=== PATIENT | male | born 1965 | race Caucasian/White ===

== ENCOUNTER 2017-05-05 18:30 | Emergency (ER) | payer OTHER ==
[~2017-05-05 18:30] MED LIST: ASPI81TA21 PO; B-CO1CAP17 PO; CHOL100027 PO; VITAMIN-C PO
[2017-05-05] MEDS ORDERED: RANITIDINE HCL 150 MG TAB ONE (19:33)
[2017-05-05 23:54] LABS: ALBUMIN 3.8 gm/dl (3.4-5.0); ALKALINE PHOSPHATASE 77 U/L (45-117); ALT/SGPT 28 U/L (12-78); AST/SGOT 17 U/L (15-37); BLOOD UREA NITROGEN 26 mg/dl (7-18); CALCIUM 8.7 mg/dl (8.5-10.1); CARBON DIOXIDE 26 mmol/L (21-32); CREATININE 1.01 mg/dl (0.60-1.40); GLUCOSE 85 mg/dl (70-99); LIPASE 244 U/L (73-393); SODIUM 137 mmol/L (136-145); TOTAL PROTEIN 7.1 gm/dl (6.4-8.2)
[2017-05-05 23:56] LABS: HEMOGLOBIN 15.4 g/dL (14.0-18.0); MEAN CELL VOLUME 85.8 fL (80-100); MEAN PLATELET VOLUME 10.1 fL (7.4-10.4); PLATELET COUNT 180 K/uL (130-400); RED CELL DISTRIBUTION WIDTH CV 13.1 % (11.5-14.5); RED CELL DISTRIBUTION WIDTH SD 41.1 fL (36.4-46.3); WHITE BLOOD COUNT 9.03 K/uL (4.8-10.8)
--- NOTE | 2017-05-05 23:56 | EMERGENCY ROOM VISIT NOTE ---
ED Visit Note First contact with patient: 23:56 Resident Physician Supervision Note: I was present with Dr. Esteban during the history and exam. I discussed the case with the resident and agree with the findings and plan as documented in the note. Documented By: Binh Dee
--- NOTE | 2017-05-06 07:00 | DIAGNOSTIC IMAGING REPORT ---
CHEST ONE VIEW PORTABLE CLINICAL HISTORY: CHEST PAIN dyspnea COMPARISON STUDY: 12/10/2011 FINDINGS: Moderate cardiomegaly. Poor visibility normal structures left base consistent with a regional consolidation. Lungs otherwise appear clear. Prominence of the mid dyspnea mediastinum most likely technical and secondary to the AP technique. IMPRESSION: Mild stable cardiomegaly. Parenchymal infiltrate versus consolidation left base. The above report was generated using voice recognition software. It may contain grammatical, syntax or spelling errors. Electronically signed by: Huseyin Bauman M.D. 05/06/2017 6:58 AM Dictated Date/Time: 05/06/2017 6:57 AM
--- NOTE | 2017-05-06 16:00 | EMERGENCY ROOM VISIT NOTE ---
History First contact with patient: 23:58 Chief Complaint: OTHER COMPLAINT Stated Complaint: REFLUX,DIARRHEA History of Present Illness Please note the EMR was down during the patients time in the ED. Please refer to paper downtime notes for further details. The patient is a 51 year old male who presents to the Emergency Room with complaints of persistent epigastric pain. He reports it had started 4 days prior. He notes he had drank 8 beers in one day on Wednesday, then the next day had severe reflux. His got him TUMS which helped a small amount. He reports the pain is burning, in the center of his chest, does not radiate, 7/10 severity, and nothing makes it better or worse. He came in because he was concerned when TUMS was not helping as much. He also noted a few episodes of non bloody diarrhea. He denied any melena, vomiting, or other change in bowel habit. Review of Systems See HPI for pertinent positives & negatives. A total of 10 systems reviewed and were otherwise negative. Past Medical/Surgical History PMHx: Obesity PSHx: None Family History Parents are both alive and healthy, but have HTN Social History Smoking Status: Never Smoker Alcohol Use: other (12 bottles of beer per week) Marital Status: Occupation Status: employed Current/Historical Medications Scheduled Aspirin Enteric Coated (Ecotrin Or Generic), 81 MG PO TODAY Cholecalciferol (Vitamin D 1000 Unit), 1,000 INTER.UNIT PO DAILY Vitamin B Cmplx/Vitc/Folic Ac (Nephrocaps), 1 CAP PO DAILY [Vitamin-C], 500 MG PO DAILY Allergies NKDA Physical Exam Physical Exam GENERAL: Awake, alert, well-appearing, in no acute distress HENT: Normocephalic, atraumatic. Oropharynx unremarkable. EYES: Normal conjunctiva. Sclera non-icteric. NECK: Supple. No nuchal rigidity. FROM. No JVD. RESPIRATORY: Clear to auscultation. CARDIAC: Regular rate, normal rhythm. Extremities warm and well perfused. Pulses equal. ABDOMEN: Soft, non-distended. No tenderness to palpation. No rebound or guarding. No masses. RECTAL: Deferred. MUSCULOSKELETAL: Chest examination reveals no tenderness. The back is symmetrical on inspection without obvious abnormality. There is no CVA tenderness to palpation. No joint edema. LOWER EXTREMITIES: Calves are equal size bilaterally and non-tender. No edema. No discoloration. NEURO: Normal sensorium. No sensory or motor deficits noted. SKIN: No rash or jaundice noted. Medical Decision & Procedures ER Provider Diagnostic Interpretation: CHEST ONE VIEW PORTABLE CLINICAL HISTORY: CHEST PAIN dyspnea COMPARISON STUDY: 12/10/2011 FINDINGS: Moderate cardiomegaly. Poor visibility normal structures left base consistent with a regional consolidation. Lungs otherwise appear clear. Prominence of the mid dyspnea mediastinum most likely technical and secondary to the AP technique. IMPRESSION: Mild stable cardiomegaly. Parenchymal infiltrate versus consolidation left base. Laboratory Results 05/05/17 19:30 05/05/17 19:30 Test 05/05/17 19:30 Red Blood Count 5.13 M/uL (4.7-6.1) Mean Corpuscular Volume 85.8 fL (80-100) Mean Corpuscular Hemoglobin 30.0 pg (25-34) Mean Corpuscular Hemoglobin Concent 35.0 g/dl (32-36) RDW Standard Deviation 41.1 fL (36.4-46.3) RDW Coefficient of Variation 13.1 % (11.5-14.5) Mean Platelet Volume 10.1 fL (7.4-10.4) Anion Gap 6.0 mmol/L (3-11) Estimated GFR () 100.1 Estimated GFR (Non- 86.3 BUN/Creatinine Ratio 25.3 (10-20) Calcium Level 8.7 mg/dl (8.5-10.1) Total Bilirubin 0.5 mg/dl (0.2-1) Aspartate Amino Transf (AST/SGOT) 17 U/L (15-37) Alanine Aminotransferase (ALT/SGPT) 28 U/L (12-78) Alkaline Phosphatase 77 U/L (45-117) Total Protein 7.1 gm/dl (6.4-8.2) Albumin 3.8 gm/dl (3.4-5.0) Globulin 3.3 gm/dl (2.5-4.0) Albumin/Globulin Ratio 1.1 (0.9-2) Lipase 244 U/L (73-393) Medications Administered IV Protonix 40mg x 1; Zantac 300mg x 1 dose ED Course 6:50PM: I evaluated the patient in room A4. A complete history and physical exam were performed. 7:00PM: I discussed the case w/Dr. Dee. I ordered a CXR, CBC, CMP, Lipase, and provided him with medication as above. 9:00PM: The patient had complete relief of his symptoms and his workup was unremarkable. He was discharged home with his in good condition. *Please note times are approximate due to EMR downtime. Medical Decision This is a 51 yo M with epigastric discomfort - differential includes: GERD, gastritis, acute coronary syndrome, pancreatitis, perforated peptic ulcer, and cholecystitis. He had IV placed and labs drawn. His EKG was unremarkable. His labwork was unremarkable. He had improvement of his symptoms with Zantac and Protonix. His CXR did not show any free air. He was discharged home in good condition with a prescription for Protonix x 2 weeks and advised to his follow up with his PCP. He was discharged home in good condition. Impression Primary Impression: GERD (gastroesophageal reflux disease) Departure Information Dispostion Home / Self-Care Condition GOOD Referrals Lux Domingo M.D. (PCP) Forms WORK / SCHOOL INSTRUCTIONS, HOME CARE DOCUMENTATION FORM, IMPORTANT VISIT INFORMATION Patient Instructions My [facility]
== END 2017-05-05 20:56 | disposition home or self-care (01) ==
LOC: C.EDA 18:30
DX: K21.9 Gastro-esophageal reflux disease without esophagitis (principal); R19.7 Diarrhea, unspecified; Z82.49 Family history of ischemic heart disease and other diseases of the circulatory system; F10.99 Alcohol use, unspecified with unspecified alcohol-induced disorder; Z79.82 Long term (current) use of aspirin